=== PATIENT | male | born 1985 | race Caucasian/White ===

== ENCOUNTER 2018-09-18 09:20 | Outpatient (REF) | payer OTHER, SELFPAY ==
[2018-09-18 13:08] LABS: ALT 42 U/L (12-78); AST 18 U/L (15-37); Albumin 3.7 g/dL (3.4-5.0); Alkaline Phosphatase 117 U/L (46-116); Bilirubin, Direct 0.17 mg/dL (0.00-0.20); Bilirubin, Total 0.5 mg/dL (0.2-1.0)
== END 2018-09-18 09:40 ==
LOC: NCHCN 09:20
PROVIDERS: PCP Nurse Practitioner; Visit Provider Internal Medicine
DX: Z00.00 Encounter for general adult medical examination without abnormal findings (principal); R94.5 Abnormal results of liver function studies; I47.2 Ventricular tachycardia; E66.9 Obesity, unspecified
CPT/HCPCS: 80076

== ENCOUNTER 2020-05-24 20:40 | Outpatient (REF) | payer OTHER, SELFPAY ==
[2020-05-24 21:19] LABS: ALT 44 U/L (16-63); AST 23 U/L (15-37); Albumin 3.9 g/dL (3.4-5.0); Alkaline Phosphatase 110 U/L (46-116); Anion Gap 9.5 mmol/L (3-11); BUN 15 mg/dL (7-18); Bilirubin, Total 0.3 mg/dL (0.2-1.0); CO2 24.5 mmol/L (21.0-32.0); CREATININE 1.04 mg/dL (0.70-1.30); Calcium 9.1 mg/dL (8.5-10.1); Chloride 104 mmol/L (98-107); Glucose 125 mg/dL (74-106); Potassium 4.1 mmol/L (3.5-5.1); Sodium 138 mmol/L (136-145)
[2020-05-24 21:34] LABS: Hemoglobin A1C 5.4 % (<5.7)
== END 2020-05-24 21:00 ==
LOC: NCHCN 20:40
PROVIDERS: PCP Nurse Practitioner; Visit Provider Internal Medicine
DX: Z00.00 Encounter for general adult medical examination without abnormal findings (principal); E66.9 Obesity, unspecified
CPT/HCPCS: 80053; 83036

== ENCOUNTER 2024-03-24 16:26 | Outpatient (REF) | payer OTHER, SELFPAY ==
[2024-03-24 15:31] LABS: Abs Immature Grans 0.03 10^3/uL (0.0-0.06); Absolute Basophil Count 0.06 10^3/uL (0.0-0.2); Absolute Eosinophil Count 0.44 10^3/uL (0.0-0.7); Absolute Monocyte Count 0.82 10^3/uL (0.1-0.8); Absolute Neutrophil Count 5.67 10^3/uL (1.2-6.7); Basophils % 0.7 %; Eosinophils % 4.8 %; HCT 45.9 % (40.0-50.0); HGB 15.3 g/dL (13.5-17.5); Immature Grans % 0.3 %; Lymphocytes % 23.9 %; MCH 30.8 pg (27.0-33.0); MCHC 33.3 % (32.0-36.0); MCV 92 fL (80-95); MPV 12.8 fL (8.0-11.0); Monocytes % 8.9 %; Neutrophils % 61.4 %; Platelet Count 250 10^3/uL (130-400); RBC 4.97 10^6/uL (4.36-5.78); RDW 13.4 % (11.8-14.1); RDW-SD 45.8 fL; WBC 9.22 10^3/uL (4.4-10.8)
[2024-03-24 15:58] LABS: ALT 29 U/L (16-63); AST 15 U/L (15-37); Albumin 3.6 g/dL (3.4-5.0); Alkaline Phosphatase 124 U/L (46-116); BUN 18 mg/dL (7-18); Bilirubin, Total 0.49 mg/dL (0.2-1.0); CREATININE 0.9 mg/dL (0.70-1.30); Calcium 9.5 mg/dL (8.5-10.1); Chloride 107 mmol/L (98-107); Estimated GFR 111.42 (mL/min/1.73m2); Glucose 98 mg/dL (74-106); Potassium 4.9 mmol/L (3.5-5.1); Sodium 141 mmol/L (136-145); Total Protein 7.2 g/dL (6.4-8.2)
[2024-03-24 23:17] LABS: PSA, Screening 0.4 ng/mL (<=2.5)
== END 2024-03-24 16:27 | disposition home or self-care (01) ==
LOC: NCHCN 16:26
PROVIDERS: Visit Provider Family Medicine
DX: N41.9 Inflammatory disease of prostate, unspecified (principal)
CPT/HCPCS: 80053; 84153; 85025

== ENCOUNTER → 2025-04-22 18:59 | Outpatient (REF) | payer OTHER, SELFPAY ==
--- NOTE | 2025-04-22 | DI.RAD_ITS ---
Exam(s) XR KNEE RT 3V AP,LAT,JAKE EXAM: XR KNEE RT 3V AP,LAT,JAKE CLINICAL HISTORY: acute pain of right knee ICD-10: M25.561. TECHNIQUE: 2D digital imaging was performed. COMPARISON: No exams were available for comparison FINDINGS: Four views There is no evidence of acute fracture but there does appear to be a suggestion of a joint effusion on the lateral view. There is mild narrowing of the medial compartment. Lateral compartment. No osteophytes. No osteochondral defects. There is a caudally directed enthesophyte seen the anterior aspect mid patella, most probably related to the superior aspect of the origin of the patellar ligament. There are no enthesophytes off the superior and inferior poles of the patella. IMPRESSION: No acute osseous findings but there is some degenerative change in the medial compartment. There is also subtle suggestion of a joint effusion which may indicate the presence of an internal derangement and can be further studied with MRI if clinically indicated. DATA REPOSITORY: RADIATION DOSE DELIVERED:
--- NOTE | 2025-04-22 19:51 | DI.VRAD_ITS ---
PROCEDURE INFORMATION: Exam: XR Right Knee Exam date and time: 04/22/2025 7:09 PM Age: 39 years old Clinical indication: Injury or trauma; Fall; Blunt trauma; Knee; Right TECHNIQUE: Imaging protocol: Radiologic exam of the right knee. Views: 3 views. COMPARISON: No relevant prior studies available. FINDINGS: Bones/joints: Normal. Soft tissues: The suprapatellar tissues are not completely included on the lateral view. Small joint effusion not excludable. IMPRESSION: No evidence for acute abnormality. Dictated and Authenticated by: Alissa Jama MD. Orderin Helen Garcia MD
== END ==
LOC: DI 18:59
PROVIDERS: PCP Family Medicine; Visit Provider Physician Assistant Medical
DX: M25.561 Pain in right knee (principal)
CPT/HCPCS: 73562

== ENCOUNTER → 2025-05-21 00:14 | Outpatient (CLI) | payer OTHER, SELFPAY ==
--- NOTE | 2025-05-21 | DI.MRI_ITS ---
Exam(s) MR LOWER JOINT RT WO EXAM: MR LOWER JOINT RT WO CLINICAL HISTORY: ACUTE PAIN RT KNEE, M25.561. TECHNIQUE: Multiplanar multisequence MRI was performed. COMPARISON: CR,XR XR KNEE RT 3V AP,LAT,JAKE from 04/22/2025 FINDINGS: Exam is mildly limited by motion. BONES: There is no fracture or contusion pattern. JOINTS: A small joint effusion is present. Articular cartilage: Patellofemoral joint: There is a question of mild thinning and mild cartilage irregularity at the apex. Somewhat limited evaluation due to motion. Medial femoral tibial joint: Minimal thinning and irregularity. Lateral femoral tibial joint: Minimal thinning and irregularity. LIGAMENTS/TENDONS: Anterior Cruciate: Unremarkable. Posterior Cruciate: Unremarkable. Medial Collateral:There is fluid around the medial collateral ligament. There is some thinning near the femoral attachment consistent with partial tear. There appear to be intact fibers. Lateral Collateral ligament complex: Unremarkable. Extensor mechanism: Unremarkable. Medial retinaculum: Unremarkable. Lateral retinaculum: Unremarkable. Popliteus: Unremarkable. MENISCI: The medial meniscus shows blunting at the apex of the body which could be degenerative. No definite on meniscal tear. The lateral meniscus is unremarkable. MUSCLES: Unremarkable. SOFT TISSUES: Mild edema in the subcutaneous fat, greatest anterior to the patella.. IMPRESSION: Partial tear of the medial collateral ligament near the femoral attachment. Mild chondromalacia. DATA REPOSITORY:
== END ==
PROVIDERS: PCP Family Medicine; Visit Provider Physician Assistant Medical
DX: M25.561 Pain in right knee (principal); M94.261 Chondromalacia, right knee
CPT/HCPCS: 73721